=== PATIENT | female | born 1980 | race Caucasian/White ===

== ENCOUNTER 2016-10-14 06:46 | Day surgery (SDC) | payer BC ==
[~2016-10-14 06:46] MED LIST: Buffered Lidocaine 1% SYR 3ML* 3 ML/SYR SYRINGE INTRADERM ONE; Famotidine IV* 10 MG/ML 2 ML (20 mg) IV ONE
[2016-10-14] MEDS ORDERED: Famotidine IV* 10 MG/ML 2 ML (20 mg) ONE (06:59)
[2016-10-14] MEDS ORDERED: ceFAZolin 2 GM PREMIX (*) 2 GM/50 ML BAG IVPB ONE (06:59)
[2016-10-14] MEDS ORDERED: Bupivacaine 0.25% EPI 200,000* 30 ML SDV ONE (07:15)
[2016-10-14] MEDS ORDERED: Lidocain 1% EPI 1:100,000 * 30 ML MDV ONE (07:15)
[2016-10-14] MEDS ORDERED: Bupivacaine 0.25% SDV* 30 ML ONE (07:15)
[2016-10-14] MEDS ORDERED: fentaNYL* 50 MCG/ML 2 ML VIAL (100 MCG VIAL) ONE (07:40)
[2016-10-14] MEDS ORDERED: Midazolam* 1 MG/ML 5 ML VIAL (5 MG) ONE (07:40)
[2016-10-14] MEDS ORDERED: Lidocaine 2% PF * 5 ML VIAL ONE (07:54)
[2016-10-14] MEDS ORDERED: Propofol* 10 MG/ML 20 ML BTL IV PUSH ONE (07:54)
[2016-10-14] MEDS ORDERED: Ondansetron INJ* 2 MG/ML VIAL ONE (07:54)
[2016-10-14] MEDS ORDERED: oxyCODONE/Acetamin 5/325 MG* TAB PO PRN (08:09)
[2016-10-14] MEDS ORDERED: Acetaminophen TAB* 325 MG PO PRN (08:09)
[2016-10-14] MEDS ORDERED: DiMENhydriNATE IV* 50 MG/ML VIAL IV PUSH PRN (08:09)
[2016-10-14 08:57] VITALS: BP 114/35
== END 2016-10-14 09:14 | disposition home or self-care (01) ==
LOC: OREAST 06:46
PROVIDERS: ATTEND Plastic Surgery
DX: R22.2 Localized swelling, mass and lump, trunk (principal); E03.9 Hypothyroidism, unspecified
CPT/HCPCS: 88307; J0690; J2250; J2405; J2704; J3010

== ENCOUNTER 2017-04-08 06:19 | Day surgery (SDC) | payer BC ==
[~2017-04-08 06:19] MED LIST changes: +Buffered Lidocaine 0.9% SYRIN* 5 ML/SYR SYRINGE INTRADERM ONE; -Buffered Lidocaine 1% SYR 3ML* 3 ML/SYR SYRINGE INTRADERM ONE; +Ondansetron INJ* 2 MG/ML VIAL IV ONE
[2017-04-08] MEDS ORDERED: Ondansetron INJ* 2 MG/ML VIAL ONE (06:30)
[2017-04-08] MEDS ORDERED: Buffered Lidocaine 0.9% SYRIN* 5 ML/SYR SYRINGE ONE (06:31)
[2017-04-08] MEDS ORDERED: Famotidine IV* 10 MG/ML 2 ML (20 mg) ONE (06:31)
[2017-04-08 06:55] LABS: Hematocrit 39 % (35-47); Hemoglobin 13.1 g/dl (12.0-16.0); Mean Corpuscular HGB Conc 34 g/dl (31-36); Mean Corpuscular Hemoglobin 29 pg (27-31); Mean Corpuscular Volume 84 fL (80-97); Mean Platelet Volume 8 um3 (7.4-10.4); Red Blood Count 4.56 10^6/ul (4.0-5.4); Red Cell Distribution Width 14 % (10.5-15); White Blood Count 5.1 10^3/ul (3.5-10.8)
[2017-04-08] MEDS ORDERED: fentaNYL* 50 MCG/ML 2 ML VIAL (100 MCG VIAL) ONE (07:04)
[2017-04-08] MEDS ORDERED: Lidocaine 2% PF * 5 ML VIAL ONE (07:04)
[2017-04-08] MEDS ORDERED: Propofol* 10 MG/ML 20 ML BTL IV PUSH ONE (07:04)
[2017-04-08] MEDS ORDERED: Midazolam* 1 MG/ML 2 ML VIAL (2 MG) ONE (07:04)
[2017-04-08] MEDS ORDERED: Acetaminophen TAB* 325 MG PO PRN (08:09)
[2017-04-08] MEDS ORDERED: Ondansetron INJ* 2 MG/ML VIAL IV PRN (08:09)
[2017-04-08] MEDS ORDERED: fentaNYL* 50 MCG/ML 2 ML VIAL (100 MCG VIAL) IV PRN (08:09)
[2017-04-08] MEDS ORDERED: HYDROmorphone* 1 MG/ML 1 ML SYR IV PRN (08:09)
[2017-04-08] MEDS ORDERED: DiMENhydriNATE IV* 50 MG/ML VIAL IV PUSH PRN (08:09)
[2017-04-08] MEDS ORDERED: Silver Nitrate/Potassium Nitr* 1 EA STICK ONE (08:22)
[2017-04-08] MEDS ORDERED: Lidocaine 1% INJ* 10 MG/ML 30 ML SDV ONE (08:25)
[2017-04-08 09:16] VITALS: BP 111/80
--- NOTE | 2017-04-09 15:48 | OP ---
DATE OF OPERATION: 04/08/17 [facility] DATE OF : 82 SURGEON: Kathy Horan MD ANESTHESIOLOGIST: Dr. Gaines. ANESTHESIA: General. PRE-OP DIAGNOSES: Postcoital bleeding and abnormal uterine bleeding. POST-OP DIAGNOSES: Postcoital bleeding and abnormal uterine bleeding, and endocervical polyps. OPERATIVE PROCEDURE: Hysteroscopy, endocervical curetting, and cervical polypectomy. ESTIMATED BLOOD LOSS: 30 cc. URINE OUTPUT: 50 cc. IV FLUIDS: 800 cc lactated Ringer's. MATERIALS TO LAB: Endocervical curettage and polyps. INDICATIONS: This patient was a 36-year-old 3, para 2, who presented reporting over a year of abnormal bleeding, primarily postcoital bleeding, which was frequently extremely heavy. She had had modifications to her contraception, including discontinuing control pills, which made no difference. On examination in the office, there was no significant friability of the cervix noted and ultrasound was unremarkable. Considering the persistence of the problem, the patient desired to proceed with a hysteroscopic evaluation of the uterine cavity and cervix with the removable of any possible causes for the bleeding. She was extensively counseled and consent was signed. FINDINGS: Uterine cavity appeared clean without any polyps with an arcuate shape. The cervix examination in the operating room was quite friable at the os. Several tiny polyps appeared to be present at the opening to the cervix. These were removed and the opening to the cervix was extensively cauterized. COMPLICATIONS: None. DESCRIPTION OF PROCEDURE: The risks, benefits, and alternatives were described to the patient and informed consent was obtained. The patient was taken to the operating room with IV running where general anesthesia was induced and found to be adequate. The patient was prepped and draped in the normal sterile fashion in the high lithotomy position in [facility]. The bladder was emptied. A time-out was performed. A bivalved speculum was placed in the vagina and the cervix was grasped with a single-tooth tenaculum anteriorly. The cervix was then gently dilated using Hanks dilators to a size of 27. During the dilation, it was notable that the outermost portion of the cervix canal bled quite easily. A MyoSure hysteroscope was advanced through the cervix and into the uterine cavity without difficulty, with saline running. On evaluation of the uterine cavity, there was thin endometrium with no visible polyps or fibroids. There did appear to be a partial septum in the midline. Both tubal ostia were visualized. Careful inspection of the cervical canal revealed no significant polyps present either. The opening at the external cervical os was noted to have several small polypoid structures. These were grasped with a Buckland clamp as well as curetted using a small Kevorkian curette. Once these had been removed as much as possible, an electrosurgical instrument with a 5-mm ball tip was prepared. The external os that was bleeding was then extensively cauterized with excellent hemostasis. The tenaculum was then removed from the cervix and there was good hemostasis. The speculum was removed and the patient was returned to the supine position. Sponge, lap, and needle counts were correct x2. [id number]/[facility] #: [id number] MTDD
== END 2017-04-08 09:20 | disposition home or self-care (01) ==
LOC: OR 06:19
PROVIDERS: ATTEND Obstetrics & Gynecology
DX: N84.1 Polyp of cervix uteri (principal); N93.0 Postcoital and contact bleeding; N93.8 Other specified abnormal uterine and vaginal bleeding; E03.9 Hypothyroidism, unspecified; Z88.8 Allergy status to other drugs, medicaments and biological substances; B00.9 Herpesviral infection, unspecified
CPT/HCPCS: 36415; 81025; 85027; 88305; A9270-GY; J2001; J2250; J2405; J2704; J3010

== ENCOUNTER 2018-08-02 05:47 | Observation (INO) | payer BC ==
[~2018-08-02 05:47] MED LIST changes: +DiMENhydriNATE IV* 50 MG/ML VIAL IV PUSH PRN; -Famotidine IV* 10 MG/ML 2 ML (20 mg) IV ONE; +Morphine VIAL* 4 MG/ML VIAL (1 ml vial) IV PRN; +Naloxone* 0.4 MG/ML 1 ML VIAL IV PRN; -Ondansetron INJ* 2 MG/ML VIAL IV ONE; +Ondansetron TAB* 4 MG PO ONE; +PROCHLORPERAZINE INJ 5 MG/ML 2 ML VIAL IV PRN; +fentaNYL* 50 MCG/ML 2 ML VIAL (100 MCG VIAL) IV PRN; +oxyCODONE/Acetamin 5/325 MG* TAB PO PRN
[2018-08-02] MEDS ORDERED: Famotidine IV* 10 MG/ML 2 ML (20 mg) IV ONE (06:00)
[2018-08-02] MEDS ORDERED: Dexamethasone TAB* 4 MG PO ONE (06:00)
[2018-08-02] MEDS ORDERED: Lactated Ringers 1000 ML Bag* 1,000 ML IV SCH (06:00)
[2018-08-02] MEDS ORDERED: Scopolamine 1.5 mg* PATCH TRANSDERM ONE (06:00)
[2018-08-02] MEDS ORDERED: ceFOXitin 2 GM IVPREMIX* 2 GM/50 ML BAG ONE (06:15)
[2018-08-02] MEDS ORDERED: Famotidine IV* 10 MG/ML 2 ML (20 mg) ONE (06:15)
[2018-08-02] MEDS ORDERED: Dexamethasone TAB* 4 MG ONE (06:15)
[2018-08-02] MEDS ORDERED: Scopolamine 1.5 mg* PATCH ONE (06:15)
[2018-08-02] MEDS ORDERED: Ondansetron ODT TAB* 4 MG ONE (06:15)
[2018-08-02] MEDS ORDERED: Bupivacaine 0.25% EPI 200,000* 30 ML SDV ONE (07:02)
[2018-08-02] MEDS ORDERED: fentaNYL* 50 MCG/ML 2 ML VIAL (100 MCG VIAL) ONE (07:14)
[2018-08-02] MEDS ORDERED: Atracurium* 10 MG/ML 10 ML VIAL ONE (07:14)
[2018-08-02] MEDS ORDERED: KETAMINE HCL* 50 MG/ML 10 ML VIAL ONE (07:14)
[2018-08-02] MEDS ORDERED: Midazolam* 1 MG/ML 5 ML VIAL (5 MG) ONE (07:14)
[2018-08-02] MEDS ORDERED: Bupivacaine 0.5% W/EPI SDV* 30 ML VIAL ONE (07:42)
[2018-08-02] MEDS ORDERED: Morphine VIAL* 10 MG/ML 1 ML VIAL ONE (07:57)
[2018-08-02] MEDS ORDERED: Propofol* 10 MG/ML 20 ML BTL ONE (08:03)
[2018-08-02] MEDS ORDERED: Ketorolac INJ* 30 MG/ML 1 ML VIAL ONE (08:03)
[2018-08-02] MEDS ORDERED: Glycopyrrolate IV* 0.2 MG/ML 1 ML VIAL ONE (08:03)
[2018-08-02] MEDS ORDERED: PROCHLORPERAZINE INJ 5 MG/ML 2 ML VIAL ONE (08:03)
[2018-08-02] MEDS ORDERED: Neostigmine Methylsulfate* 1 MG/ML 10 ML VIAL (1 mg/ml) ONE (08:03)
[2018-08-02] MEDS ORDERED: Lidocaine 2% PF * 5 ML VIAL ONE (08:03)
[2018-08-02] MEDS ORDERED: oxyCODONE/Acetamin 5/325 MG* TAB PO PRN (10:37)
[2018-08-02] MEDS ORDERED: Ibuprofen TAB* 600 MG PO PRN (10:38)
[2018-08-02] MEDS: Lactated Ringers 1000 ML Bag* 1,000 ML IV SCH ×2 (11:34→19:23)
[2018-08-02] MEDS: Artificial Tears* 15 ML BTL BOTH EYES PRN ×2 (13:57→23:14)
[2018-08-03] MEDS: Lactated Ringers 1000 ML Bag* 1,000 ML IV SCH (03:26)
[2018-08-03 05:01] LABS: ABS Basophils 0 10^3/ul (0-0.2); ABS Eosinophils 0 10^3/ul (0-0.6); ABS Monocytes 0.5 10^3/ul (0-0.8); ABS Neutrophils 6.6 10^3/ul (1.5-7.7); ABS Nucleated RBC 0 10^3/ul; Eosinophil % 0.4 %; Hematocrit 35 % (35-47); Hemoglobin 11.8 g/dl (12.0-16.0); Mean Corpuscular HGB Conc 34 g/dl (31-36); Mean Corpuscular Hemoglobin 29 pg (27-31); Mean Corpuscular Volume 84 fL (80-97); Mean Platelet Volume 7.3 fL (7.4-10.4); Nucleated Red Blood Cells % 0; Platelet Count 234 10^3/ul (150-450); Red Blood Count 4.15 10^6/ul (4.00-5.40); Red Cell Distribution Width 14 % (10.5-15); White Blood Count 9.2 10^3/ul (3.5-10.8)
[2018-08-03] MEDS ORDERED: Levothyroxine TAB* 175 MCG TAB PO SCH (06:00)
[2018-08-03] MEDS: Artificial Tears* 15 ML BTL BOTH EYES PRN (07:34)
[2018-08-03] MEDS ORDERED: Simethicone TAB* 80 MG TAB.CHEW PO PRN (08:33)
[2018-08-03] MEDS ORDERED: Bisacodyl EC TAB* 5 MG PO ONE (08:34)
[2018-08-03] MEDS ORDERED: Sertraline* 50 MG TAB PO SCH (09:00)
--- NOTE | 2018-08-03 09:03 | SURGPN ---
Subjective - Introduction -: Mrs. Malhotra is a 38 y/o with positive BRCA genetic testing. Admitted on: [08/02/18] Patient's surgical date: 08/02/18 Procedure completed: Laparoscopic Supracervical Hysterectomy and bilateral Salpingoophorectomy. - Medications -: Active Medications Generic Name Dose Route Start Last Admin Trade Name Freq PRN Reason Stop Dose Admin Lactated Ringer's 1,000 mls @ 125 mls/hr 08/02/18 11:00 08/03/18 03:26 Lactated Ringers 1000 Ml Bag* IV 125 mls/hr PER RATE TAWNY Administration Ibuprofen 600 mg 08/02/18 10:38 08/03/18 07:33 Motrin Tab* PO 600 mg Q6H PRN Administration PAIN - MILD Levothyroxine Sodium 175 mcg 08/03/18 06:00 08/03/18 05:51 Synthroid Tab* PO 175 mcg 0600 TAWNY Administration Oxycodone/Acetaminophen 2 tab 08/02/18 10:37 Percocet 5/325 Tab* PO Q4H PRN PAIN Pharmacy Profile Note 1 note 08/05/18 06:00 Scopolamine Patch Remove* PATCH OFF 08/05/18 06:01 ONCE ONE Polyvinyl Alcohol 1 drop 08/02/18 13:16 08/03/18 07:34 Polyvinyl Alcohol 1.4% Opth* BOTH EYES 1 drop Q2H PRN Administration DRY EYES Sertraline HCl 50 mg 08/03/18 09:00 08/03/18 07:34 Zoloft* PO 50 mg DAILY TAWNY Administration Simethicone 80 mg 08/03/18 08:33 Mylicon Tab* PO Q6H PRN Bloating - Comments Comments: Patient states she is comfortable, pain rated 1/10 on Po meds, denies chest pain , shortness of breath, nausea/vomiting, tolerating clear diet and voiding without difficulty. She does have abdominal bloating but no pain. Objective - Objective -: Vital Signs 08/02/18 08/02/18 08/02/18 10:33 10:34 10:35 Temperature 96.8 F Pulse Rate 104 100 93 Respiratory 13 Rate Blood Pressure 125/76 123/74 (mmHg) O2 Sat by Pulse 97 92 90 Oximetry 08/02/18 08/02/18 08/02/18 10:40 10:45 10:50 Temperature Pulse Rate 87 93 87 Respiratory 16 15 18 Rate Blood Pressure 142/80 136/77 134/78 (mmHg) O2 Sat by Pulse 97 96 94 Oximetry 08/02/18 08/02/18 08/02/18 11:00 11:01 11:25 Temperature 98.6 F 96.6 F Pulse Rate 76 76 78 Respiratory 20 17 16 Rate Blood Pressure 128/84 121/68 (mmHg) O2 Sat by Pulse 95 96 93 Oximetry 08/02/18 08/02/18 08/02/18 11:26 11:32 12:33 Temperature 96.6 F 97.3 F Pulse Rate 78 85 Respiratory 16 17 16 Rate Blood Pressure 121/68 120/71 (mmHg) O2 Sat by Pulse 93 99 Oximetry 08/02/18 08/02/18 08/02/18 13:42 15:47 15:52 Temperature 97.8 F 97.9 F Pulse Rate 79 77 Respiratory 16 16 Rate Blood Pressure 101/79 134/71 (mmHg) O2 Sat by Pulse 100 98 98 Oximetry 08/02/18 08/02/18 08/02/18 17:36 19:27 19:50 Temperature 98.5 F 98.6 F Pulse Rate 73 74 Respiratory 16 16 16 Rate Blood Pressure 131/83 125/73 (mmHg) O2 Sat by Pulse 98 98 Oximetry 08/03/18 08/03/18 08/03/18 00:12 03:27 07:23 Temperature 98.1 F 97.9 F 98.0 F Pulse Rate 65 60 63 Respiratory 16 16 16 Rate Blood Pressure 132/81 124/73 119/80 (mmHg) O2 Sat by Pulse 99 99 100 Oximetry Laboratory Results - last 24 hr 08/03/18 04:43 WBC 9.2 RBC 4.15 Hgb 11.8 L Hct 35 MCV 84 MCH 29 MCHC 34 RDW 14 Plt Count 234 MPV 7.3 L Neut % (Auto) 71.8 Lymph % (Auto) 22.0 Harney % (Auto) 5.4 Eos % (Auto) 0.4 Baso % (Auto) 0.4 Absolute Neuts (auto) 6.6 Absolute Lymphs (auto) 2.0 Absolute Monos (auto) 0.5 Absolute Eos (auto) 0 Absolute Basos (auto) 0 Absolute Nucleated RBC 0 Nucleated RBC % 0 - Intake and Output -: Intake & Output 08/01/18 08/02/18 08/03/18 08/04/18 06:59 06:59 06:59 06:59 Intake Total 7446 Output Total 3525 Balance 3921 Weight 131 lb Intake: IV Fluids 5156 LR 5156 Oral 2290 Output: Urine 1800 Yu 1675 Estimated Blood Loss 50 ADLs: Meal Record Start: 08/02/18 11: 32 Freq: Status: Active Protocol: Created 08/02/18 11:31 System (Rec: 08/02/18 11:31 System [id number]) Document 08/02/18 20:06 [id number] (Rec: 08/02/18 20:06 [id number]) Intake and Output Start: 08/02/18 11: 32 Freq: DAILY@0600,1400,2200 Status: Active Protocol: Created 08/02/18 11:31 System (Rec: 08/02/18 11:31 System [id number]) Document 08/02/18 15:52 [id number] (Rec: 08/02/18 15:53 [id number]) Document 08/02/18 16:30 [id number] (Rec: 08/02/18 16:31 [id number] [id number]) Document 08/02/18 18:43 [id number] (Rec: 08/02/18 18:44 [id number] [id number]) Document 08/02/18 22:00 [id number] (Rec: 08/02/18 22:29 [id number] SSU-C08) Document 08/02/18 23:14 [id number] (Rec: 08/02/18 23:15 [id number] PMRU-M07) Document 08/03/18 03:26 [id number] (Rec: 08/03/18 03:26 [id number] SSU-M17) Document 08/03/18 05:33 [id number] (Rec: 08/03/18 05:33 [id number] SSU-C04) Surgical Physical Exam - Comments -: Lungs CTA b/l CV RRR Abdomen soft, mildly distended, non tender, decreased but present bowel sounds Incision pads Clean/dry/intact. Assessment and Plan - Assessment -: POD day #1, stable vital signs and CBC, making good progress. - Plan Surgical Plan of Care: Advance Diet, Increase Activity, Discontinue IV - Bloating- Rx.Mylicon, OOB and ambulate, Dulcolax PO x !.
--- NOTE | 2018-08-03 09:04 | PN ---
Progress Note - Progress Note Date of Service: 08/03/18 SOAP: Subjective: feeling good. some incision discomfort, mild, relieved with advil. no BMs and minimal gas from below. Objective: Vital Signs Temp Pulse Resp BP Pulse Ox 98.0 F 63 16 119/80 100 08/03/18 07:23 08/03/18 07:23 08/03/18 07:23 08/03/18 07:23 08/03/18 07:23 sitting up in NAD PERR eomi op dry CTA bl s1 s2 nl soft min ttp, dressings clean +bs no le edema A+O x 3 Laboratory Results - last 24 hr 08/03/18 04:43 WBC 9.2 RBC 4.15 Hgb 11.8 L Hct 35 MCV 84 MCH 29 MCHC 34 RDW 14 Plt Count 234 MPV 7.3 L Neut % (Auto) 71.8 Lymph % (Auto) 22.0 [place] % (Auto) 5.4 Eos % (Auto) 0.4 Baso % (Auto) 0.4 Absolute Neuts (auto) 6.6 Absolute Lymphs (auto) 2.0 Absolute Monos (auto) 0.5 Absolute Eos (auto) 0 Absolute Basos (auto) 0 Absolute Nucleated RBC 0 Nucleated RBC % 0 Assessment: 38 yo F, BRCA carrier, sp prophylactic supracervical hysterectomy and bilateral salpingo-oophorectomy. We discussed that there is no contraindication to estrogen based HRT, which I would recommend until age 43-45, to reduce the risk of premature osteoporosis and CAD. She will have prophylactic bilateral mastectomy in November and so there is little to no increased breast cancer risk. (Is hormone Replacement Therapy Safe in Women With a BRCA Mutation?: A Systematic Review of the Contemporary Literature. Becca Nieto et al. Am J Clin Oncol. 2018). She reports this will be prescribed by gynecology on discharge. I will fu her pathology and see her as fu as an outpatient
[2018-08-03] MEDS ORDERED: Levothyroxine TAB* 25 MCG TAB PO ONE (10:04)
[2018-08-03 11:41] VITALS: BP 124/88
--- NOTE | 2018-08-04 13:28 | OP ---
CC: Dr. Arya Braga; Dr. Inocencia Pagan * DATE OF OPERATION: 08/02/18 - ROOM #333 DATE OF : 82. SURGEON: Harlan Hays MD. BALANCE WHEEL ARM BURNISHER: Arya Braga MD. ANESTHESIA: General anesthetic with endotracheal intubation. PRE-OP DIAGNOSES: The patient is BRCA-positive genetic testing with a genetic susceptibility to breast and ovarian cancer, desires prophylactic hysterectomy and salpingo-oophorectomy. POST-OP DIAGNOSES: The patient is BRCA-positive genetic testing with a genetic susceptibility to breast and ovarian cancer, desires prophylactic hysterectomy salpingo-oophorectomy. OPERATIVE PROCEDURE: Laparoscopic supracervical hysterectomy and bilateral salpingo-oophorectomy. ESTIMATED BLOOD LOSS: 15 cc. SPECIMENS SENT TO PATHOLOGY: Morcellated uterus with bilateral intact tubes and ovaries. FLUIDS: She received 2600 cc of IV crystalloid fluid. URINE OUTPUT: 400 cc of clear urine. FINDINGS: Exam under anesthesia revealed normal external genitalia, normal vaginal mucosa, and a normal cervix. Laparoscopic findings revealed a normal sized and shaped uterus with no apparent lesions with normal bilateral tubes and normal ovaries. Normal bowel and liver edge. There were no complications during this procedure. DESCRIPTION OF PROCEDURE: The patient was taken to the operating room where she was identified. She was placed on the operating table where a general anesthetic with endotracheal intubation was obtained without difficulty. She was then placed in the dorsal lithotomy position, prepped and draped in a normal sterile fashion. Attention was then brought onto the patient's perineum where the urethra was identified and catheterized with a Yu catheter and drained of clear urine. A side view speculum was then inserted into the patient 's vagina. The cervix was identified, grasped with a single-toothed tenaculum. The uterus was then sounded to about 9 cm in an anteverted position. The sound was removed from the patient's uterus and at this point a ClearView uterine manipulator was introduced into the cervix. The balloon in the manipulator was insufflated with 3 cc of normal saline and left in place. A speculum as well as single-tooth tenaculum were then removed from the patient's vagina. Attention was then brought on to the patient's abdomen, where an infraumbilical skin incision was made with a knife and carried through to the underlying layer of fascia. The fascia was then grasped with Rodrick clamps, brought up to the incision and dissected in the midline sharply. Entry into the patient's abdomen through the peritoneum was confirmed using a Betty clamp. The fascial incision was then extended superiorly and inferiorly to a length of about 4 cm. 0 Polysorb sutures were then used to replace the Rodrick clamps on the fascia. At this point, a GelPOINT single site port was introduced through the umbilicus. The trocar ports were introduced through the GelPOINT site through this port. We then proceeded to insufflate the patient's abdomen with CO2 gas and a 30-degree laparoscope was introduced through the single site port and a survey of the patient's abdomen and pelvis revealed findings as noted above. A second trocar was introduced under direct visualization 4 cm above the symphysis pubis at the midline. proceeded with our procedure. The patient's adnexa were identified bilaterally as well as the uterus. The round ligaments were grasped bilaterally with a LigaSure device. They were coagulated and transected. The same was done for the fallopian tubes bilaterally and the utero-ovarian ligament. A window in the anterior leaf of the broad ligament was then opened using the LigaSure device and air from the insufflating CO2 gas as well as blunt dissection and sharp dissection, we were able to dissect the round ligament towards the bladder and a bladder flap was created using both sharp and blunt dissection with a LigaSure device. The uterine arteries were then identified bilaterally and they were grasped at the superior aspect of the uterus with the LigaSure and coagulated. Then the uterine arteries at the lower uterine segment and the cervical uterine junction were grasped with a LigaSure, coagulated and transected to clear the vasculature away from the cervical uterine junction. At this point, we noted that the uterus was blanched from its lack of blood supply. Through the suprapubic trocar, a SupraLoop was introduced and this was wrapped around the uterus at the cervical uterine junction. The ClearView manipulator was removed from the patient's vagina and from the uterus as well. The SupraLoop was then charged at 110 Purecut and the uterus was then decapitated from its attachment to the cervix. There was good hemostasis noted at the site of decapitation of the uterus and the SupraLoop was removed from the patient's abdomen. The uterus was then placed in the Endobag and it was pulled out through the umbilical incision. A protective plastic device was placed on the umbilicus and after this, I proceeded to morcellate the uterus entirely and the entire morcellated uterus was then sent to pathology. The bag was removed from the patient's abdomen and placed away. We then proceeded to insufflate the patient' s abdomen with CO2 gas again into the GelPOINT. We proceeded to perform a bilateral salpingo-oophorectomy. This was done by identifying the ureters bilaterally. They were away from the planned surgical site. The infundibulopelvic ligament was then grasped with a LigaSure proximal to the ovary. It was then coagulated and and then transected. The ovary and fallopian tube were then removed from this attachment to the serosa using coagulation and sharp dissection with a LigaSure device. Once the bilateral salpingo-oophorectomy was finished, the specimens were placed into Endobags and removed through the umbilical incision and sent to pathology. Again, we took another survey of all the raw surgical pedicles. They were noted to be completely hemostatic. We proceeded to then irrigate the patient's pelvis, as well as the surgical pedicles and no bleeding was noted. The irrigation fluid was then suctioned. We then removed all the instruments from the patient's abdomen, all trocars and the CO2 gas from the abdomen was removed through the umbilicus. The umbilical fascia was closed using 0 Polysorb suture in a running fashion and the skin incisions at the umbilicus and suprapubically were then closed using 4-0 Monocryl suture in a subcuticular stitch. The Yu catheter was left in place. Sponge, lap and needle counts were correct x2. She was then transferred to recovery area in stable condition. [id number]/[facility] #: [id number] [facility]
--- NOTE | 2018-08-04 14:03 | OP ---
CC: Dr. Braga; Dr. Inocencia Pagan.* DATE OF OPERATION: 08/02/18 - ROOM #333 SURGEON: Harlan Hays MD. MATERIALS PLANNING ANALYST: Dr. Braga. ANESTHESIA: General anesthetic with endotracheal intubation. PRE-OP DIAGNOSIS: The patient has a genetic susceptibility to breast and ovarian cancer by testing BRCA positive. POST-OP DIAGNOSIS: The patient has a genetic susceptibility to breast and ovarian cancer by testing BRCA positive. OPERATIVE PROCEDURE: Prophylactic laparoscopic supracervical hysterectomy and bilateral salpingo-oophorectomy. ESTIMATED BLOOD LOSS: 15 mL. SPECIMEN SENT TO PATHOLOGY: Morcellated uterus, bilateral tubes and ovaries. FLUIDS: She received 2600 mL of IV crystalloid fluid. URINE OUTPUT: 400 mL of clear urine. FINDINGS: Laparoscopic findings revealed a normal size, shape uterus with normal tubes and ovaries bilaterally, normal bile and liver. COMPLICATIONS: There were no complications. DESCRIPTION OF PROCEDURE: The patient was taken to the operating room where she was identified. She was placed on the operating table where a general anesthetic with endotracheal intubation was obtained without difficulty. She was then placed in the dorsal lithotomy position, prepped and draped in normal sterile fashion. Attention was then brought onto the patient's perineum where external genitalia was examined, was within normal limits. The urethra was then catheterized with the Yu catheter and drained of clear urine. A side view speculum was inserted into the patient's vaginal. The cervix and vaginal mucosa were within normal limits. The cervix was grasped with single-toothed tenaculum. The uterus was sounded to about 8 cm in anteverted position. Into the cervix a [place] uterine manipulator was introduced. The balloon and the manipulator was inflated with 3 mL of normal saline and a single-toothed tenaculum as well as the speculum was removed from the patient's vagina. Attention was then brought onto the patient's abdomen where an infraumbilical skin incision was made with knife and carried through to the underlying layer of fascia. The fascia was then grasped with Rodrick clamps, brought up to the incision and incised medially with a knife. Entry into the patient's peritoneum and abdomen was confirmed using a Betty clamp. The fascial incision was then extended superior-inferiorly about 4 cm with sharp dissection. Now through, a umbilical incision a single site GelPOINT operative port was introduced. The trocars and the port were placed in a triangular manner. The patient's abdomen was then insufflated with CO2 gas. A 30-degree laparoscope was introduced through the trocar and a survey of the patient's pelvis and abdomen revealed findings as noted above. A trocar was introduced 4 cm above the symphysis pubis under direct visualization. At this point, we then proceed with the procedure. The grasped the a round ligament bilaterally with a blunt grasper. The round ligaments were then grasped and transected using LigaSure bilaterally. Then we proceeded to grasp the fallopian tubes about 2 cm distal to the cornua of uterus. They were grasped with a LigaSure, coagulated , and transected. The same was done for the uteroovarian ligaments bilaterally. They were grasped with a LigaSure, coagulated and transected. A window in the anterior leaf of the broad ligament was then opened using the LigaSure device. We then proceeded to use a blunt dissection to mobilize the broad ligament, away from the bladder with blunt and sharp dissection. The bladder flap was mobilized inferiorly using sharp and blunt dissection using a LigaSure instrument. The uterine arteries superiorly and at the uterocervical junction were identified. I then proceeded to grasp the uterine arteries bilaterally at the superior most aspect of the lateral border of the uterus, they were grasped and coagulated. The uterine artery at cervicouterine junction were then grasped with LigaSure, coagulated bilaterally in succession and moved away from the lower uterine segment and cervicouterine junction. At this point, the uterus was noted to be blanching from its lack of blood supply. A SuperLoop was introduced through the suprapubic port, was wrapped around the uterus, around the cervical-uterine junction. The SuperLoop was then charged at 110 pure cut setting and the uterus was then decapitated from the cervix with good hemostasis noted. No complications. At this point, the uterus was then placed in a laparoscopic bag. The bag was removed through the port on the umbilicus. The uterus was then morcellated using sharp dissection and removed morcellated in total and sent to pathology. We then proceeded to perform a bilateral salpingo-oophorectomy by grasping the infundibulopelvic ligament proximal to the ovary with the LigaSure. The ureters were then identified bilaterally and they were distal to the infundibulopelvic ligament at the ovarian junction. Infundibulopelvic ligaments were then coagulated with a LigaSure and transacted and then the fallopian tube was also removed from the attached serosa using coagulation and sharp dissection with the LigaSure device until a bilateral salpingo- oophorectomy was performed. Both ovaries and tubes were then placed into an Endo bag and were removed through the umbilicus. We then proceeded to irrigate the patient's pelvis and surgical pedicles. These were noted to be completely hemostatic. There was no bleeding. The ureters were again visualized. They were mobile and intact. We suctioned the irrigation fluid and at this point we proceeded to remove all the instruments from the patient's abdomen and removed the CO2 gas from the patient's abdomen as well. Please note the prior to decapitating the uterus from the cervix with a SuperLoop, I had removed the uterine manipulator. Once all the instruments and gas were removed from the patient's abdomen, I proceeded to close the umbilical fascia using 0-Polysorb suture in a running fashion. The umbilical skin incision and the suprapubic incision were then closed using 4-0 Monocryl in a subcuticular stitch. Yu catheter was left in place. Sponge, lap and needle counts were corrected x2. The patient was then transferred to recovery room area in stable condition. [id number]/[facility] #: [id number] MTDD
[2018-08-05] MEDS ORDERED: Scopolamine PATCH Remove* 1 NOTE MISC PATCH OFF ONE (06:00)
== END 2018-08-03 12:56 | disposition home or self-care (01) ==
LOC: OR 05:47 → SSU 11:27
PROVIDERS: ADMIT Obstetrics & Gynecology; ATTEND Obstetrics & Gynecology
DX: Z15.02 Genetic susceptibility to malignant neoplasm of ovary (principal); Z15.01 Genetic susceptibility to malignant neoplasm of breast; Z86.39 Personal history of other endocrine, nutritional and metabolic disease; Z80.3 Family history of malignant neoplasm of breast
CPT/HCPCS: 36415; 85025; 88305; 88307; 96374; 96375; 96376; 99225; 99232; A9270-GY; G0378; J0694; J0780; J1885; J2250; J2270; J2704; J2710; J3010; J8540